=== PATIENT | male | born 1980 | race Caucasian/White ===

== ENCOUNTER 2020-04-09 06:54 | Emergency (ER) | payer SELFPAY ==
[~2020-04-09] VITALS: Ht 170.2 cm; Wt 90.9 kg
[2020-04-09 07:04] VITALS: TEMP 98.2
[2020-04-09] MEDS ORDERED: NORCO 325 MG-51 TAB PO (07:38)
[2020-04-09] MEDS ORDERED: CLEOCIN HCL300 MG PO (07:38)
[2020-04-09 07:53] VITALS: BP 134/85; PULSE 55
== END 2020-04-09 07:57 | disposition home or self-care (01) ==
LOC: COL.ER 06:54
DX: K02.9 Dental caries, unspecified (principal)